=== PATIENT | female | born 1995 | race Two or more races ===

== ENCOUNTER 2022-05-13 07:27 | Inpatient (IN) | payer OTHER ==
[~2022-05-13] VITALS: Ht 162.6 cm; Wt 107.5 kg
== END 2022-05-16 16:27 | disposition home or self-care (01) | DRG 833 ==
LOC: OB/GYN 07:27
PROVIDERS: ADMIT Obstetrics & Gynecology; ATTEND Obstetrics & Gynecology
PROC: 4A1HXCZ Monitoring of Products of Conception, Cardiac Rate, External Approach (ICD-10-PCS; principal; 2022-05-13)
DX: O24.111 Pre-existing type 2 diabetes mellitus, in pregnancy, first trimester (principal); E11.9 Type 2 diabetes mellitus without complications; Z3A.08 8 weeks gestation of pregnancy; Z20.822 Contact with and (suspected) exposure to COVID-19; Z79.4 Long term (current) use of insulin
CPT/HCPCS: 240

== ENCOUNTER 2022-09-28 08:49 | Outpatient (CLI) | payer OTHER | END 2022-09-28 09:40 | disposition home or self-care (01) | LOC: NST 08:49 | PROVIDERS: ATTEND Obstetrics & Gynecology Maternal & Fetal Medicine | DX: Z34.83 Encounter for supervision of other normal pregnancy, third trimester (principal) ==

== ENCOUNTER 2022-10-27 10:08 | Outpatient (CLI) | payer OTHER | END 2022-10-27 11:01 | disposition home or self-care (01) | LOC: NST 10:08 | PROVIDERS: ATTEND Obstetrics & Gynecology Gynecology | DX: Z34.83 Encounter for supervision of other normal pregnancy, third trimester (principal) ==

== ENCOUNTER 2022-11-10 12:53 | Outpatient (CLI) | payer OTHER | END 2022-11-10 13:49 | disposition home or self-care (01) | LOC: NST 12:53 | PROVIDERS: ATTEND Obstetrics & Gynecology Maternal & Fetal Medicine | DX: Z34.83 Encounter for supervision of other normal pregnancy, third trimester (principal) ==

== ENCOUNTER 2022-11-16 07:57 | Outpatient (CLI) | payer OTHER | END 2022-11-16 09:14 | disposition home or self-care (01) | LOC: NST 07:57 | PROVIDERS: ATTEND Obstetrics & Gynecology Maternal & Fetal Medicine | DX: Z34.83 Encounter for supervision of other normal pregnancy, third trimester (principal) ==

== ENCOUNTER 2022-11-30 15:38 | Outpatient (CLI) | payer OTHER ==
[~2022-11-30 15:38] MED LIST: HUMALOG100 UNIT/1; HUMULIN 70100 UNIT/2
== END 2022-11-30 18:08 | disposition home or self-care (01) ==
LOC: NST 15:38
PROVIDERS: ATTEND Obstetrics & Gynecology
DX: Z34.83 Encounter for supervision of other normal pregnancy, third trimester (principal)